=== PATIENT | female | born 1965 | race Two or more races ===

== ENCOUNTER 2018-01-22 11:59 | Outpatient (CLI) | payer OTHER | END 2018-01-22 12:01 | disposition home or self-care (01) | LOC: T RESPIRAT 11:59 | DX: D45 Polycythemia vera (principal); D75.1 Secondary polycythemia ==

== ENCOUNTER 2018-12-13 12:11 | Emergency (ER) | payer OTHER ==
[~2018-12-13] VITALS: Ht 154.9 cm; Wt 57.6 kg
[2018-12-13] MEDS ORDERED: TOPROL XL25 M1 (12:51)
[2018-12-13] MEDS ORDERED: ASA81 MG (12:51)
== END 2018-12-13 17:05 | disposition home or self-care (01) ==
LOC: ER 12:11
DX: M79.605 Pain in left leg (principal); M25.562 Pain in left knee